=== PATIENT | male | born 1980 | race Caucasian/White ===

== ENCOUNTER 2018-09-20 17:20 | Inpatient (IN) | payer MEDICAID, OTHER ==
[~2018-09-20] VITALS: Ht 177.8 cm; Wt 117.9 kg
[2018-09-20] MEDS ORDERED: SODIUM CHLORIDE 0.9% 1,000 ML IV ONE (17:28)
[2018-09-20 17:51] LABS: CLARITY URINE CLOUDY (CLEAR); COLOR URINE ORANGE (YELLOW); KETONES URINE NEGATIVE (NEGATIVE); LEUKOCYTE ESTERASE URINE 1+ (NEGATIVE); NITRITE URINE POSITIVE (NEGATIVE); OCCULT BLOOD URINE NEGATIVE (NEGATIVE); PH URINE 5.5 (4.5-8.0); PROTEIN URINE NEGATIVE (NEGATIVE); SPECIFIC GRAVITY URINE 1.022 (1.005-1.030)
[2018-09-20 17:55] LABS: BASOPHILS % 0.7 % (0.0-2.0); EOSINOPHILS % 0.8 % (0.0-5.0); HEMATOCRIT. 24.7 % (42.0-52.0); HEMOGLOBIN. 8.6 g/dL (14.0-18.0); LYMPHOCYTES % 16.7 % (20.0-50.0); MEAN CORPUSCULAR HEMOGLOBIN 32.2 pg (28.0-32.0); MEAN CORPUSCULAR VOLUME 92.7 fL (80.0-94.0); NEUTROPHILS % 67.8 % (40.0-76.0); RED BLOOD CELL COUNT 2.66 mill/uL (4.7-6.1)
[2018-09-20 18:00] LABS: CHLORIDE 106 mEq/L (98-107)
[2018-09-20 18:04] LABS: ETHANOL BLOOD < 10 mg/dL
[2018-09-20 18:05] LABS: INR 2.7; PROTHROMBIN TIME 26.5 sec (9.6-11.0)
[2018-09-20 18:08] LABS: MEAN PLATELET VOLUME 6.9 fl (7.4-10.4); PLATELET 102 x1000/uL (130-400); PLATELET ESTIMATE DECREASED
[2018-09-20] MEDS ORDERED: LACTULOSE 20G/30ML UDC PO ONE (18:15)
[2018-09-20 21:10] VITALS: BP 128/85
[2018-09-20 21:30] VITALS: BP 125/83
[2018-09-20 22:00] VITALS: BP_SYST 115; BP_SYST 128; BP_DIAS 77; BP_DIAS 85
[2018-09-20] MEDS ORDERED: LACTULOSE 300 ML in WATER FOR IRRIGATION,STERILE 700 ML IR SCH (22:00)
[2018-09-20] MEDS ORDERED: FAMOTIDINE 20MG/2ML VIAL IV SCH (22:00)
[2018-09-20] MEDS ORDERED: PANTOPRAZOLE SODIUM 40 MG/VIAL IV SCH (22:00)
[2018-09-20] MEDS ORDERED: NICARDIPINE 100 MG in SODIUM CHLORIDE 0.9% 60 ML IV PRN (22:00)
[2018-09-20] MEDS ORDERED: LEVETIRACETAM 500 MG in SODIUM CHLORIDE 0.9% 100 ML IV SCH (22:00)
[2018-09-20] MEDS ORDERED: DEXT 5%/LACTATED RINGERS 1,000 ML IV SCH (22:00)
[2018-09-20 22:30] VITALS: BP 110/74
[2018-09-20] MEDS ORDERED: NON FORMULARY PATIENT HOME MED XX SCH (22:30)
[2018-09-20 23:00] VITALS: BP 117/81
[2018-09-20 23:30] VITALS: BP 119/64
[2018-09-21] VITALS (17 sets, daily range): BP systolic 52–123; BP diastolic 32–77
[2018-09-21] MEDS ORDERED: DEXAMETHASONE 4MG/ML 1ML VIAL IV SCH
[2018-09-21] MEDS ORDERED: AMIODARONE HCL 50MG/ML 3ML VIAL IV ONE (03:28)
[2018-09-21] MEDS ORDERED: SODIUM BICARBONATE 8.4% MEQ/ML 50ML VIAL IV ONE (03:28)
[2018-09-21] MEDS ORDERED: CALCIUM CHLORIDE 1GM/10ML SYR IV ONE (03:28)
[2018-09-21] MEDS ORDERED: EPINEPHRINE 0.1MG/ML (1:10,000) 10ML SYR ONE (03:28)
[2018-09-21] MEDS ORDERED: PNEUMOCOCCAL 23-VAL P-SAC VAC 0.5 ML IM ONE (08:00)
[2018-09-21] MEDS ORDERED: LEVETIRACETAM 500 MG in SODIUM CHLORIDE 0.9% 100 ML IV SCH (21:00)
== END 2018-09-21 11:20 | disposition expired | DRG 55 ==
LOC: ER 17:20 → MICUSO 19:10 → EDBEDREQ 19:23 → EDBEDREQSVC 19:23 → ENRESERV 20:27
PROVIDERS: ADMIT Hospitalist; ATTEND Hospitalist
PROC: 5A1935Z Respiratory Ventilation, Less than 24 Consecutive Hours (ICD-10-PCS; principal; 2018-09-21)
PROC: 0BH17EZ Insertion of Endotracheal Airway into Trachea, Via Natural or Artificial Opening (ICD-10-PCS; 2018-09-21)
PROC: 5A12012 Performance of Cardiac Output, Single, Manual (ICD-10-PCS; 2018-09-21)
PROC: 30233N1 Transfusion of Nonautologous Red Blood Cells into Peripheral Vein, Percutaneous Approach (ICD-10-PCS; 2018-09-21)
DX: S06.5X9A Traumatic subdural hemorrhage with loss of consciousness of unspecified duration, initial encounter (principal); R57.8 Other shock; I46.9 Cardiac arrest, cause unspecified; K72.90 Hepatic failure, unspecified without coma; K74.60 Unspecified cirrhosis of liver; K92.0 Hematemesis; W18.39XA Other fall on same level, initial encounter; Y93.89 Activity, other specified; Y92.89 Other specified places as the place of occurrence of the external cause; Y99.8 Other external cause status
CPT/HCPCS: 31500; 36415; 71045; 80320; 82140; 82962; 84484; 86850; 86900; 86920; 92950; 93005; 93970; 99285; A6261; C9113; J0282; J1100; J1953; J3490; J7030; J7050; J7121; P9016; G0480